=== PATIENT | male | born 1985 | race Caucasian/White ===

== ENCOUNTER 2024-09-21 10:42 | Emergency (ER) | payer BC, SELFPAY ==
--- OUTSIDE RECORDS SUMMARY | 2024-09-21 10:43 | XMS_ITS | Clinical Summary ---
Author Organization [facility] Address [address] [place] [address] Care Team Providers Care Implementation Manager Name Role Phone No Ref-Primary, Physician Primary Care Provider Allergies No known active allergies Medications SUMAtriptan (IMITREX) 50 MG tablet Take 50 mg by mouth 2 times daily as needed 0 Active rizatriptan (MAXALT) 5 MG tabletIndication s:Migraine with aura and without status migrainosus, not intractable Take 1 tablet (5 mg) by mouth at onset of headache for migraine May repeat in 2 hours. Limit to 3-4/week. 12 tablet 2 1 Active Active Problems Problem Noted Date Diagnosed Date Personal history of cardiovascular disease 12/22 Migraine without aura and wi thout status migrainosus, not intractable 12/23/2019 Cervicalgia 12/23/2019 History of head injury 12/23/2019 Numbness and tingling of right upper extremity 1 02/21/2019 Resolved Problems Problem Noted Date Diagnosed Date Resolved Date Cervical radiculopathy 02/21/202004/08 Chronic tension-type headach e, not intractable 02/21/2020 04/08/2020 Migraine with aura and witho ut status migrainosus, not intractable 12/23/2019 04/08/2020 Family History Medical History Relation Comments Migraines Maternal Aunt Relation Status Comments Maternal Aunt Social History Tobacco Use Types Packs/Day Years Used Date Smoking Tobacco: Never Smokeless Tobacco: Never Alcohol Use Standard Drinks/Week Comments Yes 0 (1 standard drink = 0.6 oz pur e alcohol) about 2 drinks Adolescent Education Answer Date Record ed Getting School Help Needed Not on file 11/13 Sex and Gender Information Value Date Recorded Sex Assigned at Not on file 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
--- OUTSIDE RECORDS SUMMARY | 2024-09-21 10:43 | XMS_ITS | Encounter Summary ---
Author Organization [facility] Address [address] [place] [address] Care Team Providers Care Legal Research Analyst Name Role Phone [facility] Primary Care Provider No Ref-Primary, Physician Primary Care Provider Jose Guadalupe Yadav MD Unavailable Encounter Details Date Type Department Care Team (Late st Contact Info) Description 12/12/2019 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
--- OUTSIDE RECORDS SUMMARY | 2024-09-21 10:43 | XMS_ITS | Clinical Summary ---
Author Organization [facility] Address [address] [place] [address] Care Team Providers Care Routing Clerk Name Role Phone Sj Barros MD Primary Care Provider [phone] Allergies No known active allergies Medications CPAPIndications :STEVEN (obstructive sleep apnea) CPAP machine for home use at pressure 4-15cm/H2O, full face mask x1/3month with a full face cushion x1/mo 1 Device 11/28/19 20 Active Multivitamin Cmb No.21-Iron-FA 18-400 mg-mcg tab Take by mouth once daily. Active hydrocortisone 2.5 % creamIndication s:Rectal fissure Apply topically to affected area(s) two times daily. Use for up to 1 week and then take a week off and repeat. 30 g 02/27/19 25 Active Additional Information Patient not taking.Reported on 09/20/2024 escitalopram oxalate 20 mg tabletIndicatio ns:Anxiety,Depr ession, major, single episode, moderate (HC) Take 1 Tablet (20 mg) by mouth once daily in the morning. 90 Tablet 3 05/16/19 25 Active buPROPion 300 mg Extended-Releas e tabletIndicatio ns:Depression with anxiety Take 1 Tablet (300 mg) by mouth once daily in the morning. 30 Tablet 5 07/21/19 25 Active ofloxacin 0.3 % ophthalmic (OCUFLOX) 0.3 % ophthalmic solutionIndicat ions:[place] eye disease of right eye Place 2 Drops into right eye four times daily. For 5 days. 5 mL 08/22/19 25 Active Additional Information Patient not taking.Reported on 09/20/2024 propranoloL 10 mg tabletIndicatio ns:Anxiety Take 1-2 Tablets (10-20 mg) by mouth 2 times daily if needed (Anxiety). 120 Tablet 3 09/20/19 25 Active rizatriptan (MAXALT) 5 mg tabletIndicatio ns:Migraine with aura, not intractable, without status migrainosus Take 1 Tablet (5 mg) by mouth 2 times daily if needed for Migraine. Wait until they call for this. 30 Tablet 2 09/20/19 25 Active venlafaxine (EFFEXOR XR) 37.5 mg Extended-Releas e capsuleIndicati ons:MDD (major depressive disorder), recurrent episode, moderate (HC),Generalize d anxiety disorder one cap every morning for 7 days, then two caps every morning thereafter 60 Capsule 3 09/21/19 25 Active rizatriptan (MAXALT) 5 mg tabletIndicatio ns:Migraine with aura, not intractable, without status migrainosus Take 1 Tablet (5 mg) by mouth 2 times daily if needed for Migraine. 30 Tablet 2 10/19/19 24 025 Discontinu ed(Reorder (E-cancel not sent)) doxycycline 100 mg tabletIndicatio ns:Community acquired pneumonia, unspecified laterality Take 1 Tablet (100 mg) by mouth two times daily for 7 days. 14 Tablet 08/22/19 25 025 Active Problems Problem Noted Date Diagnosed Date MDD (major depressive disord er), recurrent episode, moderate 09/20/2024 Generalized anxiety disorder 09/20/2024 Depression, major, single episode, moderate 12/09 Overview (07/13/2023): He was on Citalopram in 2007 and that was not helpful but he is not sure he got to the max dose. Anxiety 12/28/2021 Migraine with aura, not intr actable, without status migrainosus 12/28/2021 STEVEN HST 03/15/2017 AHI-7.5 03/28/2017 Palpitations Personal history of diseases of respiratory syst em Aortic valve disorder Overview (01/27/2017): quadra cusp aortic valve w regurgitation. Migraine Encounters Date Type Department Care Team Description 09/20/2024 8:45 AM CDT Office Visit [facility] [address] [facility] [address] [place] [address] Shavonne Leon MD Mental Health Intake 09/19/2024 8:00 AM CDT Office Visit [facility] [address] [place] [address] Sj Barros MD Medication Management (Follow up) 09/19/2024 Travel 09/14/2024 Travel 08/21/2024 1:45 PM CDT [place] [facility] [address] [place] [address] Flaco Son MD Eye Problem (x2 days) 08/21/2024 Travel 07/26/2024 Telephone [facility] [address] [place] [address] Sj Barros MD Follow Up 07/20/2024 3:10 PM CDT Office Visit [facility] [address] [place] [address] Sj Barros MD Medication Management (New concerns with depression) 07/20/2024 Travel from Last 3 Months Immunizations Immunization Administration Dates Next Due COVID-19 VACCINE SPIKEVAX (M ODERNA 50MCG/0.5ML) 12YO+ PFS 03/03/2023 COVID-19 vaccine ([place]-Bio NTech 30mcg/0.3mL) PF, MDV 05/16/2020,04/23/2020 INFLUENZA, IIV3 PF (AGE >= 6 MO) 02/28/2024 Influenza, IIV4 12/28/2021,11/19/2020,12/20/2017 Meningococcal Vaccine (Menactra) 09/30/2004 Td (Age >=7 Years) 11/19/2020 Tdap 09/17/2008 Family History Medical History Relation Name Comments Bipolar disorder Brother Donta Cataracts Brother Donta congenital Good Health Father mood disorder Valvular heart disease Mother Genetic Other 1 no congenital h eart disease; mgf with pacemaker; mgm with DE age 60; mom with mitral valve prolapse and palpitations Genetic Other 2 Family history is negative for premature coronary disease. Relation Name Status Comments Brother Donta Alive Father Alive Mother Alive Other 1 Other 2 Social History Tobacco Use Types Packs/Day Years Used Date Smoking Tobacco: Never Passive Smoke Exposure: Current Smokeless Tobacco: Never Tobacco Cessation:Counseling Given: Not Answered Alcohol Use Standard Drinks/Week Comments Yes 1 (1 standard drink = 0.6 oz pur e alcohol) PHQ-2 Answer Date Recorded PHQ-2 TOTAL SCORE 2 09/20/2024 Social Connections Answer Date Recorded Do you often feel lonely or isolated from those around you? 0 07/20/2024 Alcohol Use Answer Date Recorded How often do you have a drink containing alcohol ? 2 05/15/2024 How many drinks containing a lcohol do you have on a typical day when you are drinking? 0 05/15/2024 How often do you have five or more drinks on one occasion? 0 05/15/2024 Financial Resource Strain Answer Date R ecorded Difficulty of Paying Living Expenses 3 07/20/2024 Difficulty of Paying Living Expenses Not on file 07/20/2024 Food Insecurity Answer Date Recorded Do you worry your food will run out before you are able to buy more? 1 07/20/2024 Transportation Needs Answer Date Record ed Does lack of transportation keep you from medica l appointments? 1 07/20/2024 Does lack of transportation keep you from work, meetings or getting things that you need? 1 07/20/2024 Housing Stability Answer Date Recorded What is your housing situation today? 1 07/20/2024 Utilities Answer Date Recorded Do you have trouble paying f or utilities (for example, heat, electricity, water, phone)? 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 Gender Identity Not on file Sexual Orientation Not on file Occupation Industry Job Start Date Job End Date self employed Not on file Not on file Not on file Obstetrics History Last Filed Vital Signs Vital Sign Reading Time Taken Comments Blood Pressure 100/66 09/20/2024 8:47 AM CDT Pulse 58 09/20/2024 8:47 AM CDT Temperature 36.6 C (97.9 F) 09/19/2024 8:09 AM CDT Respiratory Rate 16 09/20/2024 8:47 AM CDT Oxygen Saturation 97% 09/20/2024 8:47 AM CDT Inhaled Oxygen Concentration - - Weight 87.5 kg (193 lb) 09/20/2024 8:47 AM CDT Height 193 cm (6' 4) 09/20/2024 8:47 AM CDT Body Mass Index 23.49 09/20/2024 8:47 AM CDT Plan of Treatment Upcoming Encounters Date Type Department Care Team (Late st Contact Info) Description 12/11/2024 7:30 AM MOLD UNLOADER Office Visit [facility] [address] [place] [address] Sj Barros MD [address] [place] [address] Health Maintenance Due Date Last Done Comments Hepatitis B series for 19+ ( 1 of 3 - 19+ 3-dose series) 2005 Pneumococcal series for age 6-49 (1 of 2 - PCV) 2005 COVID-19 vaccine series ( season) 2023 03/03/2023, 12/26/2020, 05/16/2020, Additional history exists Influenza Vaccine (#1) 2024 , 12/28/2021, 11/19/2020, Additional history exists BMI (ht and wt on same day) for age 18+ 09/20/2025 09/20/2024, 07/20/2024, 07/13/2023, Additional history exists Depression screening for age 12+ 09/20/2025 09/20/2024, 09/19/2024, 07/20/2024, Additional history exists Lipids for age 35-44 03/10/2027 03/10/2022, 02/02/20 17 Tetanus booster 11/19/2030 11/19/2020, 09/17/2008 HIV for age 15-65 Completed 03/10/2022 Hepatitis C screening for ag e 18-79 Completed 03/10/2022 Procedures Procedure Name Priority Date/Time Associated Diagnosis Comments LC HIV-1/O/2, 4TH GENERATION Routine 03/10/2022 3:20 PM MOLD UNLOADER Screening for HIV (human immunodeficiency virus) LC HCV ANTIBODY RFX TO QUANT PCR Routine 03/10/2022 3:20 PM MOLD UNLOADER Need for hepatitis C screening test LC LIPID PANEL AND CHOL/HDL RATIO Routine 03/10/2022 3:20 PM MOLD UNLOADER Screening for lipid disorders from Last 3 Months or Most Recently Relevant to Health Maintenance Results * (ABNORMAL) LC LIPID PANEL AND CHOL/HDL RATIO (03/10/2022 3:20 PM MOLD UNLOADER) [facility] Cholesterol, Total 191 100 - 199 mg/dL 03/12/2022 12:[address] [facility]) Triglycerides 45 0 - 149 mg/dL 03/12/2022 12:[address] [facility] ([facility] HDL Cholesterol 79 >39 mg/dL 12:[address] [facility] ([facility]) VLDL Cholesterol Shane 9 5 - 40 mg/dL 03/12/2022 12:[address] [facility] ([facility]) LDL Chol Calc (NIH) 103(H) 0 - 99 mg/dL 03/12/2022 12:[address] [facility] ([facility]) T. Chol/HDL Ratio 2.4 0.0 - 5.0 ratio 03/12/2022 12:[address] [facility] ([facility]) Comment: T. Chol/HDL Ratio Men Women 1/2 Avg.Risk 3.4 3.3 Avg.Risk 5.0 4.4 2X Avg.Risk 9.6 7.1 3X Avg.Risk 23.4 11.0 Blood BLOOD SPECIMEN / Unknown Venipuncture / Unknown 03/10/2022 3:20 PM MOLD UNLOADER 03/10/2022 3:21 PM MOLD UNLOADER Narrative FOR ESOTERIC TESTING ([facility]) - 03/12/2022 12:08 PM MOLD UNLOADER Performed at: [address] [place] [id number] Supervising Airplane Pilot: Tanner Manning MD, Phone: [phone] Sj Barros MD SEND OUTS Final Resu lt Performing Organization Address [facility] Co de Phone Number [facility] ([facility]) [address] [place] [address], [place] * LC HCV ANTIBODY RFX TO QUANT PCR (03/10/2022 3:20 PM MOLD UNLOADER) [facility] HCV Ab 0.1 0.0 - 0.9 s/co ratio 03/12/2022 10:06 PM MOLD UNLOADER [facility] ([facility]) Blood BLOOD SPECIMEN / Unknown Venipuncture / Unknown 03/10/2022 3:20 PM MOLD UNLOADER 03/10/2022 3:21 PM MOLD UNLOADER Narrative [facility] ([facility]) - 03/12/2022 10:06 PM MOLD UNLOADER Performed at: [address] [place] [id number] Supervising Airplane Pilot: Tanner Manning MD, Phone: [phone] Sj Barros MD LABORATORY Final Resu lt Performing Organization Address [facility] Co de Phone Number [facility] ([facility]) [address] [place] [address], [place] * LC HIV-1/O/2, 4TH GENERATION (03/10/2022 3:20 PM MOLD UNLOADER) [facility] HIV Scr 4th Gen Non Reactive Non Reactive 03/13/2022 3:08 AM MOLD UNLOADER [facility] ([facility]) Comment: HIV Negative HIV-1/HIV-2 antibodies and HIV-1 p24 antigen were NOT detected. There is no laboratory evidence of HIV infection. Blood BLOOD SPECIMEN / Unknown Venipuncture / Unknown 03/10/2022 3:20 PM MOLD UNLOADER 03/10/2022 3:21 PM MOLD UNLOADER [facility]ative [facility] - 03/13/2022 3:08 AM MOLD UNLOADER Performed at: - [address] [id number] Supervising Airplane Pilot: Tanner Manning MD, Phone: [phone] us Sj Barros MD LABORATORY Final Resu lt FOR ESOTERIC TESTING ([facility]) [address] [place] [address], from Last 3 Months or Most Recently Relevant to Health Maintenance Insurance [facility] * Guarantor: Estuardo Pardo Account Type Relation to Patient Date of Phone Billing Address Workers Comp Self 1985 [phone] x (Work) [address] [place] [address] Care Teams Routing Clerk Relationship Specialty Start Date End Date Sj Barros [place] [address] PCP - General Family Practice 07/11/23
[2024-09-21 10:56] VITALS: BP 131/76; PULSE 79; RESP 20; TEMP 36.6; O2SAT 97; BMI 23.5
[2024-09-21 11:04] VITALS: BP 106/79; PULSE 73; RESP 16; O2SAT 99
[2024-09-21] MEDS: MORPHINE 4 MG/ML INJ IVP (11:04)
--- NOTE | 2024-09-21 11:24 | ED.GENADULT ---
HPI - General Adult General Chief complaint: Laceration/Wound Stated complaint: Deep lac L arm Time Seen by Provider: 09/21/24 11:21 History of Present Illness HPI narrative: [age] year white male was moving a refrigerator and cut his left volar forearm on some ext metal that was sticking out has a large flap with the base proximal and the circumferential flap distally this appears to be about 8 in in length and about 3 in across. Does not appear deep he has just some small amount of muscle involvement in a volar forearm but he has normal flexion extension of his forearm. There is no arterial bleeding noted at this time. There is no deep puncture wounds. Distal CMS appears intact. Patient is slightly pale and feels nauseated from the injury. Has a slight superficial lack of about a cm on his right wrist. He is up-to-date on tetanus in 2020 he has been generally healthy. He is on bupropion and escitalopram. Related Data Home Medications ?Medication ?Instructions ?Recorded ?Confirmed escitalopram oxalate 20 mg tablet 20 mg PO DAILY 06/08/23 09/21/24 bupropion HCl 150 mg 24 hr tablet, 300 mg PO QAM 09/21/24 09/21/24 extended release Previous Rx's ?Medication ?Instructions ?Recorded cephalexin 500 mg capsule 500 mg PO QID #20 caps 09/21/24 hydrocodone 7.5 mg-acetaminophen 1 tab PO Q6-8H PRN pain #14 tabs 09/21/24 325 mg tablet Allergies Allergy/AdvReac Type Severity Reaction Status Date / Time No Known Drug Allergies Allergy Verified 09/21/24 10:55 Review of Systems Status of ROS: Reports: 6 or more systems reviewed and unremarkable except as noted in History and below [facility] Social History Smoking Status: Never smoker How often do you have a drink containing alcohol: 2-4 times a month AUDIT-C Alcohol total score: 2 Non-prescribed substance use: denies use Exam Narrative: Exam Narrative: Objective: The patient's vital signs are within normal limits He is slightly pale feels nauseated Alert orient x3 Left forearm shows the large laceration described above about 8 in x 3 in with a proximal attach base. There is just a small amount of muscle belly involvement but he has got full flexion extension of his wrist and forearm and pronation supination appears intact. There is no arterial bleeding noted. Distal CMS intact. Const: Vital Signs, click to edit/add: Vital Signs - 24 hr 09/21/24 10:56 09/21/24 11:04 09/21/24 11:25 Temperature 97.8 F Pulse Rate [Pulse Oximeter] 79 73 70 Respiratory Rate 20 16 16 Blood Pressure [Ri ght Upper Arm] 131/76 106/79 113/73 Pulse Oximetry 97 99 99 Oxygen Delivery Me thod Room Air Room Air 09/21/24 11:30 09/21/24 11:45 09/21/24 12:00 Temperature Pulse Rate [Pulse Oximeter] 61 63 68 Respiratory Rate 16 Blood Pressure [Ri ght Upper Arm] 109/70 113/67 107/78 Pulse Oximetry 98 98 97 Oxygen Delivery Me thod Room Air Room Air Room Air Course Vital Signs Vital signs: Initial Vital Signs Temperature 97.8 F 09/21/24 10:56 Temperature Source Temporal Artery Scan 09/21/24 10:56 Pulse Rate 79 09/21/24 10:56 Respiratory Rate 20 09/21/24 10:56 Blood Pressure 131/76 09/21/24 10:56 Blood Pressure Mean 94 09/21/24 10:56 Blood Pressure Position High-Fowlers 09/21/24 10:56 Pulse Oximetry 97 09/21/24 10:56 Oxygen Delivery Method Room Air 09/21/24 10:56 Vital Signs Temperature 97.8 F 09/21/24 10:56 Pulse Rate 79 09/21/24 10:56 Respiratory Rate 20 09/21/24 10:56 Blood Pressure 131/76 09/21/24 10:56 Pulse Oximetry 97 09/21/24 10:56 Oxygen Delivery Method Room Air 09/21/24 10:56 Temperature 97.8 F 09/21/24 10:56 Pulse Rate 68 09/21/24 12:00 Respiratory Rate 16 09/21/24 12:00 Blood Pressure 107/78 09/21/24 12:00 Pulse Oximetry 97 09/21/24 12:00 Oxygen Delivery Method Room Air 09/21/24 12:00 Medications Administered Medications: Discontinued Medications Generic Name Dose Route Start Last Admin Trade Name Freq PRN Reason Stop Dose Admin Cefazolin Sodium 2 gm/ Sodium 100 mls @ 200 mls/hr 09/21/24 11:23 09/21/24 12:15 Chloride IVPB 09/21/24 11:24 Infused ONCE ONE Infusion Sodium Chloride 1,000 mls @ 6,000 mls/hr 09/21/24 11:30 09/21/24 11:46 0.9 % Sodium Chloride 1000 Ml IV 09/21/24 11:39 Infused .Q10M FRANK Infusion Morphine Sulfate 4 mg 09/21/24 11:23 09/21/24 11:04 Morphine 4 Mg/Ml Inj IVP 09/21/24 11:24 4 mg ONCE ONE Administration Ondansetron HCl 4 mg 09/21/24 11:23 09/21/24 11:27 Ondansetron 2 Mg/Ml Inj IVP 09/21/24 11:24 4 mg ONCE ONE Administration Medical Decision Making MDM Narrative Medical decision making narrative: Procedure: Copious saline and Hibiclens was used to irrigate the wound. This was done multiple times. The patient had 1% xylocaine without epinephrine injected for anesthesia along the rim of the laceration. 3-0 simple interrupted Ethilon sutures were placed on the medial side to provide stability so we could see if the skin construct over the entire wound. I completed about 8 or 9 sutures on that side. Dr. romero from surgery arrived and offered to complete the rest of the procedure of repair. The patient is up-to-date on tetanus, was given 4 mg IV morphine 1 L normal saline, 4 mg of Zofran, and 2 g of Ancef. Discharge Plan Discharge Clinical Impression: Forearm laceration Patient Disposition: Home w/ Parent or Adult Instructions: Laceration (ED) Additional Instructions: suture removal General surgery Clinic in 2 weeks please set up appointment for the patient. Keflex 500 q.i.d. x5 days. [place] as needed for pain. Watch for redness infection. Wound care as per Dr romero Follow up appointment with general surgery is scheduled at the [facility] on 10/03 with a 1:15pm appointment time. Please check in at 1:05pm to complete paperwork. If you have any questions, please call [phone]. Activity Level: Light activity Discharge Diet: Regular Prescriptions: New cephalexin 500 mg capsule 500 mg PO QID Qty: 20 0RF hydrocodone-acetaminophen 7.5-325 mg tablet 1 tab PO Q6-8H PRN (Reason: pain) Qty: 14 0RF No Action escitalopram oxalate 20 mg tablet 20 mg PO DAILY bupropion HCl 150 mg tablet extended release 24 hr 300 mg PO QAM Follow Up/Referrals: Provider,Not a Local [Non-Staff, Family Practice] Stand Alone Forms: MyHealth Info Instructions
[2024-09-21 11:25] VITALS: BP 113/73; PULSE 70; RESP 16; O2SAT 99
[2024-09-21] MEDS: ONDANSETRON 2 MG/ML inj 4 MG IVP (11:27)
[2024-09-21 11:30] VITALS: BP 109/70; PULSE 61; O2SAT 98
[2024-09-21] MEDS: CEFAZOLIN 2 GM in 0.9 % SODIUM CHLORIDE Mini-bag 100 ML IVPB (11:36)
[2024-09-21 11:45] VITALS: BP 113/67; PULSE 63; O2SAT 98
[2024-09-21 12:00] VITALS: BP 107/78; PULSE 68; RESP 16; O2SAT 97
--- NOTE | 2024-09-21 12:05 | PM.GSCN ---
History of Present Illness Consult details Date Seen: 09/21/24 Consult date: 09/21/24 Narrative: Patient presented to the emergency department after a refrigerator part sliced open his left forearm. I was asked to evaluate the incision by Dr. Castillo. on evaluation there was evidence of a semi-stony river 10 cm laceration involving underlying muscle, with partial transection of the muscle belly and damage to subcutaneous fat. No evidence of necrosis to the overlying skin. Everything appeared well perfused and hemostatic. Dr. Castillo had begun repair with interrupted 3-0 nylon sutures on the medial aspect of the wound. Patient is up-to-date on his tetanus. He is a nonsmoker. Review of Systems Status of ROS: Reports: 10 or more systems reviewed and unremarkable except as noted in History and below [facility] Social History Smoking Status: Never smoker How often do you have a drink containing alcohol: 2-4 times a month AUDIT-C Alcohol total score: 2 Non-prescribed substance use: denies use Meds Home Medications and Allergies Home Medications ?Medication ?Instructions ?Recorded ?Confirmed ?Type escitalopram oxalate 20 mg tablet 20 mg PO DAILY 06/08/23 09/21/24 History bupropion HCl 150 mg 24 hr tablet, 300 mg PO QAM 09/21/24 09/21/24 History extended release cephalexin 500 mg capsule 500 mg PO QID #20 caps 09/21/24 Rx hydrocodone 7.5 mg-acetaminophen 1 tab PO Q6-8H PRN pain #14 tabs 09/21/24 Rx 325 mg tablet Allergies Allergy/AdvReac Type Severity Reaction Status Date / Time No Known Drug Allergies Allergy Verified 09/21/24 10:55 Exam Narrative: Exam Narrative: Left forearm deep laceration semi circular, approximately 10 cm x 5 cm. Partial tear of the muscle belly. Patient denies any numbness to the area or distally. He is able to make a fist and extend is fingers. Full range of motion to wrist. He is able to have flexion and extension of his arm. No noted arterial bleeding. Const: Vital Signs, click to edit/add: Vital Signs - 24 hr 09/21/24 10:56 09/21/24 11:04 09/21/24 11:25 Temperature 97.8 F Pulse Rate [Pulse Oximeter] 79 73 70 Respiratory Rate 20 16 16 Blood Pressure [Ri t Upper Arm] 131/76 106/79 113/73 Pulse Oximetry 97 99 99 Oxygen Delivery Me thod Room Air Room Air Results Labs Labs: All other labs normal. General Surgery Procedures Laceration Laceration 1: Site: upper extremity ( Left forearm) Side (if applicable): left Size (cm): 10 Description: flap Depth: involves muscle layer Anesthetic used: lidocaine 1% Anesthesia technique: local infiltration Amount (ml): 10 Skin layer closed with: other ( nylon) Size (cm): 3-0 Technique: simple, interrupted Subcutaneous layer closed with: Vicryl Size: 3-0 Technique: simple, interrupted Additional comments: greater than 20 sutures of 3-0 nylon on the skin. Progress Note:A&P Assessment and plan (1) Forearm laceration: Status: Acute Assessment and Plan: Repair of a forearm laceration with deep subcutaneous 3-0 Vicryl stitches and several interrupted 3-0 nylon sutures. Dressings of bacitracin, 4 x 4, Kerlix roll and Nael wrap was applied. Patient is okay to shower starting tomorrow. He was instructed not to shower or go swimming for 2 weeks. Recommend the sutures be removed in 10-14 days. He was instructed to keep the incision covered changing the dressing once per day and re-applying bacitracin, Kerlix roll and Nael wrap. Plan - An appointment will be made to remove your stitches in 10-14 days at the general surgery clinic - Tylenol/ ibuprofen / [place] as needed for pain control. Okay to apply ice to the area. - Change the dressing once per day - no heavy lifting greater than 20 lb for the next 2 weeks or until the sutures are removed. He was instructed to call the clinic or be seen sooner for any concern for how the wound is healing or infection.
== END 2024-09-21 12:39 | disposition home or self-care (01) ==
PROVIDERS: Emergency Provider Family Medicine; PCP Family Medicine
DX: S51.812A Laceration without foreign body of left forearm, initial encounter (principal); W26.9XXA Contact with unspecified sharp object(s), initial encounter
CPT/HCPCS: 12034; 96365; 96375; 99283; 99284; J0690; J2270; J2405; J7030